=== PATIENT | male | born 1970 | race Caucasian/White ===

== ENCOUNTER → 2019-08-06 | Outpatient (CLI) | payer BC | END | disposition home or self-care (01) | LOC: CVU 13:28 | PROVIDERS: ATTEND Internal Medicine Cardiovascular Disease | DX: I08.2 Rheumatic disorders of both aortic and tricuspid valves (principal); I10 Essential (primary) hypertension | CPT/HCPCS: 0399T; 93306 ==

== ENCOUNTER → 2020-06-20 | Outpatient (CLI) | payer BC | END | disposition home or self-care (01) | LOC: CFH 14:50 | PROVIDERS: ATTEND Physician Assistant Medical | DX: I36.1 Nonrheumatic tricuspid (valve) insufficiency (principal); I10 Essential (primary) hypertension | CPT/HCPCS: 93306 ==

== ENCOUNTER 2020-10-09 09:39 | Emergency (ER) | payer BC ==
[~2020-10-09] VITALS: Ht 188 cm; Wt 119.2 kg
--- NOTE | 2020-10-09 09:56 | NUR ---
PT COMES IN C/O LOW BACK PAIN FOLLOWING "TWISTING WRONG" YESTERDAY. STATES HE HAS LOW BACK PAIN IN THE PAST BUT THIS IS "ONLY THE 3RD TIME I FELL FELT THIS BAD". STATES HE FEELS MORE COMFORTABLE SITTING ON EDGE OF BED. STATES NO SIGNIFICANT INJURY IN THE PAST THAT HAS CAUSED CHRONIC BACK PAIN.
--- NOTE | 2020-10-09 09:59 | NUR ---
PROVIDER AT BEDSIDE
--- NOTE | 2020-10-09 10:04 | NUR ---
PT STATES 7/10 BACK PAIN SITTING ON EDGE OF BED.
[2020-10-09] MEDS ORDERED: CYCLOBENZAPRINE 10 MG TABLET ONE (10:08)
[2020-10-09] MEDS ORDERED: ONDANSETRON ODT 4 MG ONE (10:08)
[2020-10-09] MEDS ORDERED: KETOROLAC 30 MG/1 ML ONE (10:08)
[2020-10-09] MEDS ORDERED: HYDROcodone/APAP 5/325 TABLET ONE (10:08)
--- NOTE | 2020-10-09 10:16 | NUR ---
ORDERED MEDICATIONS ADMINISTERED.
[2020-10-09] MEDS ORDERED: HYDROcodone/APAP 5/325 TABLET PO ONE (10:30)
[2020-10-09] MEDS ORDERED: ONDANSETRON ODT 4 MG PO ONE (10:30)
[2020-10-09] MEDS ORDERED: CYCLOBENZAPRINE 10 MG TABLET PO ONE (10:30)
[2020-10-09] MEDS ORDERED: KETOROLAC 30 MG/1 ML IM ONE (10:30)
[2020-10-09 11:24] VITALS: BP 139/71
--- NOTE | 2020-10-09 11:31 | NUR ---
PT AMBULATED TO DISCHARGE WITH STEADY GAIT. PT ENCOURAGED TO FOLLOWUP DISCUSSED. PT EDUCATED TO RETURN TO THE ED WITH WORSENING SYMPTOMS. PT EDUCATED NOT TO DRIVE WHILE TAKING PAIN MEDICATION AND STATES HE HAS A RIDE COMING TO PICK HIM UP FROM THE HOSPITAL. VERBALIZES UNDERSTANDING OF ALL INSTRUCTIONS
== END 2020-10-09 11:25 | disposition home or self-care (01) ==
LOC: ED 10:07
DX: S39.012A Strain of muscle, fascia and tendon of lower back, initial encounter (principal); M51.36 Other intervertebral disc degeneration, lumbar region; M43.06 Spondylolysis, lumbar region; I10 Essential (primary) hypertension; E78.5 Hyperlipidemia, unspecified; I48.91 Unspecified atrial fibrillation; Z90.49 Acquired absence of other specified parts of digestive tract; X58.XXXA Exposure to other specified factors, initial encounter; Y93.89 Activity, other specified; Y92.89 Other specified places as the place of occurrence of the external cause; Y99.8 Other external cause status
CPT/HCPCS: 72110; 96372; 99284; J1885; Q0162